=== PATIENT | female | born 1990 | race American Indian/Alaskan Native ===

== ENCOUNTER 2018-08-07 10:37 | Outpatient (CLI) | payer MEDICAID ==
--- NOTE | 2018-08-07 12:25 | XRay Report ---
CERVICAL SPINE, 5 views: History: Cervicalgia. Views of the cervical spine demonstrate normal bony alignment, vertebral height and interspace distances. Oblique views show patent foramina and normal apophyseal joint alignment. The prevertebral soft tissues are not thickened. IMPRESSION: Normal study.
== END 2018-08-07 10:38 | disposition home or self-care (01) ==
LOC: XRAY 10:37
PROVIDERS: ATTEND Nurse Practitioner
DX: M54.2 Cervicalgia (principal); Z88.0 Allergy status to penicillin
CPT/HCPCS: 72050

== ENCOUNTER 2020-03-21 13:12 | Emergency (ER) | payer SELFPAY ==
[2020-03-21 13:28] VITALS: BP 125/83
--- NOTE | 2020-03-21 13:47 | Emergency Department Report ---
ED ENT HPI - General Chief complaint: Headache Stated complaint: EAR AND NECK PAIN FOR 3 WEEKS Time Seen by Provider: 03/21/20 13:29 Source: patient Mode of arrival: Ambulatory Limitations: No Limitations - History of Present Illness Initial comments: 30 y/o female comes in for left ear pain and left neck pain times 3 weeks. Has been taking pain medication without much relief. Denies any PMH . Has an allergy to PCN. No fever no chest pain or throat pain. MD complaint: ear pain Onset/Timin -: week(s) Location: L ear Severity scale (0 -10): 8 Quality: stabbing, aching, sharp Consistency: constant Improves with: none Worsens with: movement Associated Symptoms: discharge from ear. denies: fever, cough, gum swelling, toothache, pain with swallowing, sore throat - Related Data Allergies Allergy/AdvReac Type Severity Reaction Status Date / Time Penicillins AdvReac Anaphylaxis Unverified 08/07/18 10:38 ED Dental HPI - General Chief complaint: Headache Stated complaint: EAR AND NECK PAIN FOR 3 WEEKS Time Seen by Provider: 03/21/20 13:29 Source: patient Mode of arrival: Ambulatory Limitations: No Limitations - Related Data Allergies Allergy/AdvReac Type Severity Reaction Status Date / Time Penicillins AdvReac Anaphylaxis Unverified 08/07/18 10:38 ED Review of Systems ROS: Stated complaint: EAR AND NECK PAIN FOR 3 WEEKS Other details as noted in HPI ED Past Medical Hx - Past Medical History Previous Medical History?: No - Surgical History Past Surgical History?: No - Social History Smoking Status: Current Every Day Smoker Substance Use Type: None ED Physical Exam - General Limitations: No Limitations General appearance: alert, in no apparent distress - Head Head exam: Present: atraumatic, normocephalic - Eye Eye exam: Present: normal appearance - ENT ENT exam: Present: mucous membranes moist - Expanded ENT Exam Expanded TM/Canal exam: Erythema: Left TM, Canal Discharge: Left TM - Neck Neck exam: Present: normal inspection - Neurological Exam Neurological exam: Present: alert, oriented X3, normal gait - Psychiatric Psychiatric exam: Present: normal affect, normal mood - Skin Skin exam: Present: warm, dry, intact, normal color. Absent: rash ED Course Vital Signs 03/21/20 13:25 Temperature 98.2 F Pulse Rate 102 H Respiratory 16 Rate Blood Pressure 125/83 O2 Sat by Pulse 100 Oximetry ED Medical Decision Making - Medical Decision Making 30 y/o female comes in for left ear pain and left neck pain times 3 weeks. Has been taking pain medication without much relief. Denies any PMH . Has an allergy to PCN. No fever no chest pain or throat pain. Order ear drops will place [facility] Critical care attestation.: If time is entered above; I have spent that time in minutes in the direct care of this critically ill patient, excluding procedure time. ED Disposition Clinical Impression: Otitis externa Is pt being admited?: No Does the pt Need Aspirin: No Condition: Stable Instructions: Otitis Externa (ED) Additional Instructions: use ear drops as prescribed follow up with an research contracts supervisor as needed. Continue with over the counter pain medications. Referrals: PRIMARY CARE, [Primary Care Provider] - 3-5 Days
[2020-03-21] MEDS ORDERED: NEOMY 3.5 MG/POLY B 10,000 UNITS/HC 10 MG/ML (OTIC) SUSP 10 ML AU ONE (14:00)
== END 2020-03-21 15:05 | disposition home or self-care (01) ==
LOC: ED 13:12
DX: H60.92 Unspecified otitis externa, left ear (principal); F17.200 Nicotine dependence, unspecified, uncomplicated; Z79.899 Other long term (current) drug therapy; Z88.0 Allergy status to penicillin
CPT/HCPCS: 99282

== ENCOUNTER 2020-10-12 12:18 | Emergency (ER) | payer SELFPAY ==
[2020-10-12 13:27] VITALS: BP 114/58
--- NOTE | 2020-10-12 13:27 | Event Note ---
ED Screening Note ED Screening Note: 30-year-old female with multiple complaining of a few day history of suprapubic pain which is now began to progress to left flank pain and and worsening pelvic pain after being struck into the her left side with a door. Advanced over the door she reports having some vague spotting. Reports no urinary symptoms reports no suspicion for an STD but is like coming on for her menses as she is a G3, P3 with a current possibility of being but has not yet been evaluated This initial assessment/diagnostic orders/clinical plan/treatment(s) is/are subject to change based on patients health status, clinical progression and re- assessment by fellow clinical providers in the ED. Further treatment and workup at subsequent clinical providers discretion. Patient/guardian urged not to elope from the ED as their condition may be serious if not clinically assessed and managed. Initial orders include: Urinalysis and urine hCG may involve further testing once these results have been determined
[2020-10-12 15:46] LABS: Bilirubin,Urine NEG (Negative); Blood,Urine NEG (Negative); Color,Urine Yellow (Yellow); Mucus,Urine FEW /HPF; Protein,Urine <15 mg/dL mg/dL (Negative); Urobilinogen,Urine < 2.0 mg/dL (<2.0)
[2020-10-12 16:00] LABS: HCG Qualitative,Urine Positive (Negative)
--- NOTE | 2020-10-12 16:15 | Emergency Department Report ---
<KYLE TABARES - Last Filed: 10/12/20 18:27> ED Female HPI - General Chief complaint: Abdominal Pain Stated complaint: ABD AND VAGINAL PAIN Time Seen by Provider: 10/12/20 15:26 Source: patient Mode of arrival: Ambulatory Limitations: No Limitations - History of Present Illness Initial comments: Patient is a 30-year-old female presents emergency room with complaints of pelvic pain that began a week ago. She states that yesterday she was accidentally hit to the left lower abdomen with a door being opened. She denies any fever, nausea, vomiting, diarrhea, hematuria, vaginal discharge, vaginal itching or burning, lesions or blisters. She states that she had one episode of spotting yesterday but that completely resolved. She states that she is unsure if she is . She states her last menstrual cycle was September 13. She has not taken a test. No past medical history. Allergy to penicillin. - Related Data Allergies Allergy/AdvReac Type Severity Reaction Status Date / Time Penicillins AdvReac Anaphylaxis Unverified 08/07/18 10:38 ED Review of Systems Comment: All other systems reviewed and negative ED Past Medical Hx - Past Medical History Previous Medical History?: No - Surgical History Past Surgical History?: No - Social History Smoking Status: Never Smoker Substance Use Type: None ED Physical Exam - General Limitations: No Limitations General appearance: alert, in no apparent distress - Head Head exam: Present: atraumatic, normocephalic - Eye Eye exam: Present: normal appearance - ENT ENT exam: Present: mucous membranes moist - Respiratory Respiratory exam: Present: normal lung sounds bilaterally. Absent: respiratory distress, wheezes, rales, rhonchi, stridor, chest wall tenderness, accessory muscle use, decreased breath sounds, prolonged expiratory - Cardiovascular Cardiovascular Exam: Present: regular rate, normal rhythm, normal heart sounds. Absent: systolic murmur, diastolic murmur, rubs, gallop - GI/Abdominal GI/Abdominal exam: Present: soft, normal bowel sounds, other (no ecchymosis, negative murphys sign, no mcburneys point ttp, negative mancuso turners and cullens sign, no crepitus, no deformity). Absent: distended, tenderness, guarding, rebound, rigid - Back Exam Back exam: Absent: CVA tenderness (R), CVA tenderness (L) - Neurological Exam Neurological exam: Present: alert, oriented X3 - Psychiatric Psychiatric exam: Present: normal affect, normal mood - Skin Skin exam: Present: warm, dry, intact ED Medical Decision Making - Lab Data Result diagrams: 10/12/20 16:02 10/12/20 16:02 Lab Results 10/12/20 10/12/20 10/12/20 Range/Units 15:28 16:02 16:02 WBC 11.8 H (4.5-11.0) K/mm3 RBC 4.55 (3.65-5.03) M/mm3 Hgb 13.0 (10.1-14.3) gm/dl Hct 39.9 (30.3-42.9) % MCV 88 (79-97) fl MCH 29 (28-32) pg MCHC 33 (30-34) % RDW 14.5 (13.2-15.2) % Plt Count 256 (140-440) K/mm3 Lymph % (Auto) 23.9 (13.4-35.0) % [place] % (Auto) 8.5 H (0.0-7.3) % Eos % (Auto) 0.5 (0.0-4.3) % Baso % (Auto) 0.3 (0.0-1.8) % Lymph # (Auto) 2.8 (1.2-5.4) K/mm3 [place] # (Auto) 1.0 H (0.0-0.8) K/mm3 Eos # (Auto) 0.1 (0.0-0.4) K/mm3 Baso # (Auto) 0.0 (0.0-0.1) K/mm3 Seg Neutrophils % 66.8 (40.0-70.0) % Seg Neutrophils # 7.9 H (1.8-7.7) K/mm3 Sodium 136 L (137-145) mmol/L Potassium 4.5 (3.6-5.0) mmol/L Chloride 103.1 (98-107) mmol/L Carbon Dioxide 23 (22-30) mmol/L Anion Gap 14 mmol/L BUN 8 (7-17) mg/dL Creatinine 0.6 (0.6-1.2) mg/dL Estimated GFR > 60 ml/min BUN/Creatinine Ratio 13 % Glucose 102 H (65-100) mg/dL Calcium 9.7 (8.4-10.2) mg/dL Total Bilirubin 0.20 (0.1-1.2) mg/dL AST 19 (5-40) units/L ALT 23 (7-56) units/L Alkaline Phosphatase 46 (35-129) units/L Total Protein 7.3 (6.3-8.2) g/dL Albumin 4.0 (3.9-5) g/dL Albumin/Globulin Ratio 1.2 % HCG, Quant (0-4) mIU/mL Urine Color Yellow (Yellow) Urine Turbidity Clear (Clear) Urine pH 9.0 H (5.0-7.0) Ur Specific [place] 1.018 (1.003-1.030) Urine Protein <15 mg/dl (Negative) mg/dL Urine Glucose (UA) Neg (Negative) mg/dL Urine Ketones Neg (Negative) mg/dL Urine Blood Neg (Negative) Urine Nitrite Neg (Negative) Urine Bilirubin Neg (Negative) Urine Urobilinogen < 2.0 (<2.0) mg/dL Ur Leukocyte Esterase Neg (Negative) Urine WBC (Auto) 1.0 (0.0-6.0) /HPF Urine RBC (Auto) 3.0 (0.0-6.0) /HPF U Epithel Cells (Auto) 11.0 (0-13.0) /HPF Urine Mucus Few /HPF Urine HCG, Qual Positive A (Negative) Blood Type 10/12/20 10/12/20 Range/Units 16:02 16:02 WBC (4.5-11.0) K/mm3 RBC (3.65-5.03) M/mm3 Hgb (10.1-14.3) gm/dl Hct (30.3-42.9) % MCV (79-97) fl MCH (28-32) pg MCHC (30-34) % RDW (13.2-15.2) % Plt Count (140-440) K/mm3 Lymph % (Auto) (13.4-35.0) % [place] % (Auto) (0.0-7.3) % Eos % (Auto) (0.0-4.3) % Baso % (Auto) (0.0-1.8) % Lymph # (Auto) (1.2-5.4) K/mm3 [place] # (Auto) (0.0-0.8) K/mm3 Eos # (Auto) (0.0-0.4) K/mm3 Baso # (Auto) (0.0-0.1) K/mm3 Seg Neutrophils % (40.0-70.0) % Seg Neutrophils # (1.8-7.7) K/mm3 Sodium (137-145) mmol/L Potassium (3.6-5.0) mmol/L Chloride (98-107) mmol/L Carbon Dioxide (22-30) mmol/L Anion Gap mmol/L BUN (7-17) mg/dL Creatinine (0.6-1.2) mg/dL Estimated GFR ml/min BUN/Creatinine Ratio % Glucose (65-100) mg/dL Calcium (8.4-10.2) mg/dL Total Bilirubin (0.1-1.2) mg/dL AST (5-40) units/L ALT (7-56) units/L Alkaline Phosphatase (35-129) units/L Total Protein (6.3-8.2) g/dL Albumin (3.9-5) g/dL Albumin/Globulin Ratio % HCG, Quant 785.3 H (0-4) mIU/mL Urine Color (Yellow) Urine Turbidity (Clear) Urine pH (5.0-7.0) Ur Specific [place] (1.003-1.030) Urine Protein (Negative) mg/dL Urine Glucose (UA) (Negative) mg/dL Urine Ketones (Negative) mg/dL Urine Blood (Negative) Urine Nitrite (Negative) Urine Bilirubin (Negative) Urine Urobilinogen (<2.0) mg/dL Ur Leukocyte Esterase (Negative) Urine WBC (Auto) (0.0-6.0) /HPF Urine RBC (Auto) (0.0-6.0) /HPF U Epithel Cells (Auto) (0-13.0) /HPF Urine Mucus /HPF Urine HCG, Qual (Negative) Blood Type A POSITIVE - Medical Decision Making Patient is a 30-year-old female presents emergency room with complaints of pelvic pain that began a week ago. She states that yesterday she was accidentally hit to the left lower abdomen with a door being opened. She denies any fever, nausea, vomiting, diarrhea, hematuria, vaginal discharge, vaginal itching or burning, lesions or blisters. She states that she had one episode of spotting yesterday but that completely resolved. She states that she is unsure if she is . She states her last menstrual cycle was September 13. She has not taken a test. No past medical history. Allergy to penicillin. VSS. No abdominal tenderness on exam, no guarding, no rebound, no rigidity, no peritoneal signs, normal bowel sounds, no ecchymosis, negative murphys sign, no mcburneys point ttp, negative mnacuso turners and cullens sign, no crepitus, no deformity. UA is within normal limits. Urine is positive. hCG quant is 785. Labs are stable. Patient is Rh+. Given that she is having pelvic pain and is newly found out to be , OB ultrasound ordered. Patient signed out to Mary Manriquez PA-C at 6 PM pending OB ultrasound ED Disposition Clinical Impression: Positive test Disposition: TO HOME OR SELFCARE Condition: Stable Instructions: Abdominal Pain (ED) Additional Instructions: Recommend to repeat your hCG in 72 hours. Ultrasound shows no intrauterine gestation but with your hCG numbers below 2000 is most likely will not show up this early. I recommend to repeat your labs in possible repeat ultrasound. You can only take Tylenol at this time for pain. You can also follow-up with an OB /MOBILE SECURITY SPECIALIST I have listed their information below. Referrals: PRIMARY CARE, [Primary Care Provider] - 3-5 Days [facility] [Provider Group] - 3-5 Days [facility] [Provider Group] - 3-5 Days Forms: Work/School Release Form(ED) <HONEY MANRIQUEZ - Last Filed: 10/12/20 22:40> ED Review of Systems ROS: Stated complaint: ABD AND VAGINAL PAIN Other details as noted in HPI ED Course Vital Signs 10/12/20 13:23 Temperature 98.2 F Pulse Rate 102 H Respiratory 18 Rate Blood Pressure 114/58 O2 Sat by Pulse 98 Oximetry ED Medical Decision Making - Lab Data Result diagrams: 10/12/20 16:02 10/12/20 16:02 - Radiology Data Radiology results: report reviewed [facility] [address] [place] [address] Ultrasound Report Signed Patient: SAMMIE HERNANDEZ MR#: [id number] : 1990 Acct:[id number] Age/Sex: 30 / F ADM Date: 10/12/20 Loc: ED Attending Dr: Ordering Physician: SHIRA MUSE Date of Service: 10/12/20 Procedure(s): US OB <= 14 weeks fetus Accession Number(s): [id number] cc: SHIRA MUSE Pelvic ultrasound with Doppler INDICATION: Pelvic pain. test positive FINDINGS: The uterus measures 9 x 5 x 6 cm. Endometrial thickness is 9 mm. Left ovary is not visualized from overlying bowel gas. The right ovary appears normal. No intrauterine was identified IMPRESSION: No intrauterine identified. The right ovary is normal but the left adnexa was poorly identified from overlying bowel gas and cannot be assessed. Signer Name: Curtis Villa MD Signed: 10/12/2020 7:22 PM Workstation Name: [id number] Transcribed By: Dictated By: Curtis Villa MD Electronically Authenticated By: Curtis Villa MD Signed Date/Time: 10/12/201921 DD/ 20 TD/TT: Critical care attestation.: If time is entered above; I have spent that time in minutes in the direct care of this critically ill patient, excluding procedure time. ED Disposition Is pt being admited?: No Does the pt Need Aspirin: No
[2020-10-12 16:35] LABS: Alanine Aminotransferase 23 units/L (7-56); BUN/Creatinine Ratio 13; Blood Urea Nitrogen 8 mg/dL (7-17); Calcium 9.7 mg/dL (8.4-10.2); Hemolysis Index 13
[2020-10-12 16:42] LABS: Basophils % (Auto) 0.3 % (0.0-1.8); Eosinophils # (Auto) 0.1 K/mm3 (0.0-0.4); Eosinophils % (Auto) 0.5 % (0.0-4.3); Hematocrit 39.9 % (30.3-42.9); Lymphocytes # (Auto) 2.8 K/mm3 (1.2-5.4); Lymphocytes % (Auto) 23.9 % (13.4-35.0); Mean Corpuscular HGB Conc 33 % (30-34); Mean Corpuscular Volume 88 fl (79-97); Monocytes % (Auto) 8.5 % (0.0-7.3); Platelet Count 256 K/mm3 (140-440); Red Blood Count 4.55 M/mm3 (3.65-5.03); Red Cell Distribution Width 14.5 % (13.2-15.2)
--- NOTE | 2020-10-12 19:26 | Ultrasound Report ---
Pelvic ultrasound with Doppler INDICATION: Pelvic pain. test positive FINDINGS: The uterus measures 9 x 5 x 6 cm. Endometrial thickness is 9 mm. Left ovary is not visualiz ed from overlying bowel gas. The right ovary appears normal. No intrauterine was identified IMPRESSION: No intrauterine identified. The right ovary is normal but the left adnexa was p oorly identified from overlying bowel gas and cannot be assessed. Signer Name: Curtis Villa MD Signed: 10/12/2020 7:22 PM Workstation Name: [id number]
== END 2020-10-12 19:50 | disposition home or self-care (01) ==
LOC: ED 12:18
DX: Z32.01 Encounter for pregnancy test, result positive (principal); Z88.0 Allergy status to penicillin
CPT/HCPCS: 36415; 76801; 80053; 81001; 81025; 84702; 85025; 86900; 86901

== ENCOUNTER 2020-10-17 19:07 | Emergency (ER) | payer SELFPAY ==
--- NOTE | 2020-10-17 19:34 | Emergency Department Report ---
ED Recheck HPI - General Chief Complaint: Medical Clearance Stated Complaint: LOWER ABDOMINAL PAIN Time Seen by Provider: 10/17/20 19:34 Source: patient Mode of arrival: Ambulatory Limitations: No Limitations - History of Present Illness Initial Comments: The patient was evaluated in the emergency department for symptoms described in the history of present illness. He/she was evaluated in the context of the global COVID-19 pandemic, which necessitated consideration that the patient might be at risk for infection with the virus that causes COVID-19. Institutional protocols and algorithms that pertain to the evaluation of patients at risk for COVID-19 are in a state of rapid change based on information released by regulatory bodies including the CDC and federal and state organizations. These policies and algorithms were followed during the patient's care in the emergency department. Please note that these policies, procedures and recommendations changed on a rapid basis. 30-year-old -[place] female presents to the emergency room for a repeat hCG and follow-up on her abdominal pain. Patient came in on 10/12/2020 and had a positive test with hCG of less than 800. Patient had an ultrasound that did not show intrauterine gestational sac as hCG level was too low. Therefore patient came back to have a repeat. Patient still reports her pains a 6 out of 10. Denies any vaginal bleeding or vaginal discharge MD Complaint: abnormal lab Onset/Timin -: days(s) - Related Data Previous Rx's Medication Instructions Recorded Last Taken Type Vit-Fe Fumar-FA [ 1 tab PO QDAY #90 tablet 10/17/20 Unknown Rx Vitamin] Allergies Allergy/AdvReac Type Severity Reaction Status Date / Time Penicillins AdvReac Anaphylaxis Unverified 08/07/18 10:38 ED Review of Systems ROS: Stated complaint: LOWER ABDOMINAL PAIN Other details as noted in HPI ED Past Medical Hx - Social History Smoking Status: Never Smoker Substance Use Type: None - Medications Home Medications: Home Medications Medication Instructions Recorded Confirmed Last Taken Type Vit-Fe Fumar-FA [ 1 tab PO QDAY #90 tablet 10/17/20 Unknown Rx Vitamin] ED Physical Exam - General Limitations: No Limitations General appearance: alert, in no apparent distress - Head Head exam: Present: atraumatic, normocephalic - Eye Eye exam: Present: normal appearance - ENT ENT exam: Present: mucous membranes moist - Neck Neck exam: Present: normal inspection - Respiratory Respiratory exam: Present: normal lung sounds bilaterally. Absent: respiratory distress - GI/Abdominal GI/Abdominal exam: Present: soft, normal bowel sounds - Neurological Exam Neurological exam: Present: alert, oriented X3, normal gait - Psychiatric Psychiatric exam: Present: normal affect, normal mood - Skin Skin exam: Present: warm, dry, intact, normal color. Absent: rash ED Course Vital Signs 10/17/20 19:33 Temperature 97.8 F Pulse Rate 113 H Respiratory 17 Rate Blood Pressure 107/57 O2 Sat by Pulse 100 Oximetry ED Recheck MDM - Medical Decision Making 30-year-old -[place] female presents to the emergency room for a repeat hCG and follow-up on her abdominal pain. Patient came in on 10/12/2020 and had a positive test with hCG of less than 800. Patient had an ultrasound that did not show intrauterine gestational sac as hCG level was too low. Therefore patient came back to have a repeat. Patient still reports her pains a 6 out of 10. Denies any vaginal bleeding or vaginal discharge Critical care attestation.: If time is entered above; I have spent that time in minutes in the direct care of this critically ill patient, excluding procedure time. ED Disposition Clinical Impression: Qualifiers: Weeks of gestation: less than 8 weeks Qualified Code(s): Z3A.01 - Less than 8 weeks gestation of Disposition: DC-01 TO HOME OR SELFCARE Is pt being admited?: No Does the pt Need Aspirin: No Condition: Stable Additional Instructions: hCG is 5346. Ultrasound shows 5 weeks and 5 days gestational sac. Please take your vitamins and follow-up with an PLUG MAKING OPERATOR. Prescriptions: Vit-Fe Fumar-FA [ Vitamin] 1 tab PO QDAY #90 tablet Referrals: PRIMARY CARE, [Primary Care Provider] - 3-5 Days [facility] [Provider Group] - 3-5 Days [facility] [Provider Group] - 3-5 Days [facility] [Provider Group] - 3-5 Days Forms: Work/School Release Form(ED) ED Medical Decision Making - Radiology Data Radiology results: report reviewed Referring Physician:HONEY MANRIQUEZPatient Name:SAMMIE HERNANDEZPatient ID:[id number] of :[id number]:FemaleAccession:[id number] Date:[id number] Status:Finalized Findings [facility] [address] [id number] Ultrasound Report Signed Patient: SAMMIE HERNANDEZ MR#: [id number] : 1990 Acct:[id number] Age/Sex: 30 / F ADM Date: 10/17/20 Loc: ED Attending Dr: Ordering Physician: SHIRA CANO Date of Service: 10/17/20 Procedure(s): US OB <= 14 weeks fetus Accession Number(s): [id number] cc: SHIRA CANO ULTRASOUND OBSTETRIC INDICATION / CLINICAL INFORMATION: HCG 5000< pelvic pain. TECHNIQUE: Transabdominal. COMPARISON: 10/12/2020 FINDINGS: GESTATIONAL SAC: Gestational sac is seen measuring 8.9 mm. This corresponds to 5 weeks, 5 days. No pole is seen. YOLK SAC: Not seen. ADNEXA: No significant abnormality. FREE FLUID: None. ADDITIONAL FINDINGS: None. IMPRESSION: Gestational sac in the uterus with sac size corresponding to 5 weeks, 5 days. No pole seen at this time. Signer Name: Stoney Maher MD Signed: 10/17/2020 11:19 PM Workstation Name: [id number] Transcribed By: NAYAN Dictated By: Stoney Maher MD Electronically Authenticated By: Stoney Maher MD Signed Date/Time: 10/17/202318 DD/ 17 TD/TT: - Medical Decision Making 30-year-old -[place] female presents to the emergency room for a repeat hCG and follow-up on her abdominal pain. Patient came in on 10/12/2020 and had a positive test with hCG of less than 800. Patient had an ultrasound that did not show intrauterine gestational sac as hCG level was too low. Therefore patient came back to have a repeat. Patient still reports her pains a 6 out of 10. Denies any vaginal bleeding or vaginal discharge. hCG came back 5346. Ultrasound shows a gestational sac approximately 5 weeks and 5 days no pole at this moment. Patient to follow-up with her PLUG MAKING OPERATOR.
[2020-10-17 19:35] VITALS: BP 107/57
--- NOTE | 2020-10-17 23:24 | Ultrasound Report ---
ULTRASOUND OBSTETRIC INDICATION / CLINICAL INFORMATION: HCG 5000< pelvic pain. TECHNIQUE: Transabdominal. COMPARISON: 10/12/2020 FINDINGS: GESTATIONAL SAC: Gestational sac is seen measuring 8.9 mm. This corresponds to 5 weeks, 5 days. No fe carmen pole is seen. YOLK SAC: Not seen. ADNEXA: No significant abnormality. FREE FLUID: None. ADDITIONAL FINDINGS: None. IMPRESSION: Gestational sac in the uterus with sac size corresponding to 5 weeks, 5 days. No pole seen at t his time. Signer Name: Stoney Maher MD Signed: 10/17/2020 11:19 PM Workstation Name: [id number]
== END 2020-10-17 21:40 | disposition home or self-care (01) ==
LOC: ED 19:07
DX: Z34.90 Encounter for supervision of normal pregnancy, unspecified, unspecified trimester (principal); Z79.899 Other long term (current) drug therapy; Z88.0 Allergy status to penicillin; Z3A.01 Less than 8 weeks gestation of pregnancy
CPT/HCPCS: 36415; 76801; 84702

== ENCOUNTER 2021-01-10 16:25 | Emergency (ER) | payer MEDICAID ==
[2021-01-10] MEDS ORDERED: ACETAMINOPHEN 500 MG TAB PO ONE (16:41)
--- NOTE | 2021-01-10 16:46 | Emergency Department Report ---
ED General Adult HPI - General Chief complaint: Pain General Stated complaint: BACK/CHEST/COUGH/ABD PAIN Time Seen by Provider: 01/10/21 16:44 Source: patient Mode of arrival: Wheelchair Limitations: No Limitations - History of Present Illness Initial comments: 30-year-old female who is currently 16 weeks presents to the ER today complaining of pain which starts in her right back/flank and radiates around into her right chest. Patient states that the pain started yesterday while she was sitting in a car. She states that the pain has been constant but waxes and wanes. She described as a sharp pain. She states that seem to be worse when she moves, when she coughs, when she eats or drink and sometimes when she takes a deep breath. She denies any injury to her chest. She states that when the pain in her back into her chest intensifies it causes her abdominal area to tighten up. She reports associated dry cough cough, shortness of breath headache, and diarrhea. She states that she has had diarrhea for about a week, about 2 episodes per day of watery stools without melena or hematochezia. She denies any nausea or vomiting. She denies any abnormal vaginal bleeding or discharge. She denies any leg swelling or calf pain. She denies any fever or chills. MD Complaint: Right-sided back pain/right chest pain -: Gradual, days(s) (yesterday ) - Related Data Previous Rx's Medication Instructions Recorded Last Taken Type Vit-Fe Fumar-FA [ 1 tab PO QDAY #90 tablet 10/17/20 Unknown Rx Vitamin] Nitrofurantoin [place]/M-Cryst 100 mg PO Q12HR #14 capsule 01/10/21 Unknown Rx [Macrobid CAP] Allergies Allergy/AdvReac Type Severity Reaction Status Date / Time Penicillins AdvReac Anaphylaxis Unverified 08/07/18 10:38 ED Review of Systems ROS: Stated complaint: BACK/CHEST/COUGH/ABD PAIN Other details as noted in HPI Comment: All other systems reviewed and negative Constitutional: denies: chills, fever Eyes: denies: eye pain, eye discharge, vision change ENT: denies: ear pain, throat pain Respiratory: cough. denies: orthopnea, shortness of breath, SOB with exertion, SOB at rest, stridor, wheezing Cardiovascular: chest pain (Right-sided chest pain). denies: palpitations, dyspnea on exertion, orthopnea, edema, syncope, paroxysmal nocturnal dyspnea Gastrointestinal: diarrhea. denies: abdominal pain, nausea, vomiting, constipation, hematemesis Genitourinary: denies: urgency, dysuria, frequency, hematuria, discharge, a bnormal menses, dyspareunia Musculoskeletal: back pain Neurological: headache Psychiatric: denies: anxiety, depression Hematological/Lymphatic: denies: easy bleeding, easy bruising ED Past Medical Hx - Past Medical History Previous Medical History?: No - Surgical History Past Surgical History?: No - Social History Smoking Status: Never Smoker Substance Use Type: None - Medications Home Medications: Home Medications Medication Instructions Recorded Confirmed Last Taken Type Vit-Fe Fumar-FA [ 1 tab PO QDAY #90 tablet 10/17/20 Unknown Rx Vitamin] Nitrofurantoin [place]/M-Cryst 100 mg PO Q12HR #14 capsule 01/10/21 Unknown Rx [Macrobid CAP] ED Physical Exam - General Limitations: No Limitations General appearance: alert, in no apparent distress - Head Head exam: Present: atraumatic, normocephalic, normal inspection - Eye Eye exam: Present: normal appearance, PERRL, EOMI Pupils: Present: normal accommodation - Respiratory Respiratory exam: Present: normal lung sounds bilaterally, chest wall tenderness (right lateral/posterior chest wall). Absent: respiratory distress - Cardiovascular Cardiovascular Exam: Present: regular rate, normal rhythm, normal heart sounds - GI/Abdominal GI/Abdominal exam: Present: soft, tenderness (Mild RUQ), other (Gravid abdomen consistent with gestational age). Absent: guarding, rebound - Extremities Exam Extremities exam: Present: normal inspection. Absent: full ROM, normal capillary refill, pedal edema, calf tenderness - Back Exam Back exam: Present: tenderness (right upper lumbar/lower thoracic. No midline ttp. ) - Neurological Exam Neurological exam: Present: alert, oriented X3 - Psychiatric Psychiatric exam: Present: normal affect, normal mood - Skin Skin exam: Present: intact ED Course Vital Signs 01/10/21 01/10/21 16:29 18:26 Temperature 98.3 F 98.3 F Pulse Rate 112 H 98 H Respiratory 16 18 Rate Blood Pressure 122/72 Blood Pressure 115/61 [Left] O2 Sat by Pulse 100 98 Oximetry ED Medical Decision Making - Lab Data Result diagrams: 01/10/21 17:21 01/10/21 17:21 - EKG Data EKG shows normal: sinus rhythm Rate: normal - EKG Data Interpretation: no acute changes, normal EKG - Radiology Data Radiology results: report reviewed Findings [address] [address] Ultrasound Report Signed Patient: SAMMIE HERNANDEZ MR#: [id number] 917 : 1990 Acct:[id number] Age/Sex: 30 / F ADM Date: 01/10/21 Loc: ED Attending Dr: Ordering Physician: SHIRA VICENTE Date of Service: 01/10/21 Procedure(s): US OB >= 14 weeks Fetus Accession Number(s): [id number] cc: SHIRA VICENTE OBSTETRIC ULTRASOUND INDICATION: abdominal pain COMPARISON: 10/17/2020 TECHNIQUE: Transabdominal imaging was performed. FINDINGS: Single viable intrauterine is identified. lie: Transverse. Heart rate: 140 bpm. measurements are as follows: Biparietal diameter 3.7 cm, 17 weeks 2 days Head circumference 13.7 cm, 17 weeks 1 day Abdominal circumference 11.2 cm, 17 weeks 0 days Femur length 2.4 cm, 17 weeks 1 day Amniotic fluid index is subjectively within normal limits. No placental abnor malities are seen. Cervix is closed measuring 4 cm. CONCLUSION: No abnormalities are seen. Sonographic gestational age is 17 weeks 1 day which corresponds with clinical gestational age. Signer Name: Shoaib Cortez MD Signed: 01/10/2021 5:27 PM Workstation Name: [id number] Transcribed By: Dictated By: Shoaib Cortez MD Electronically Authenticated By: Shoaib Cortez MD Signed Date/Time: 01/10/211726 DD/ 172 TD/TT: Findings [address] [address] XRay Report Signed Patient: SAMMIE HERNANDEZ MR#: [id number] 917 : 1990 Acct:[id number] Age/Sex: 30 / F ADM Date: 01/10/21 Loc: ED Attending Dr: Ordering Physician: SHIRA VICENTE Date of Service: 01/10/21 Procedure(s): XR chest 1V ap Accession Number(s): [id number] cc: SIHRA VICENTE Fluoro Time In Adriana ganga: CHEST 1 VIEW 01/10/2021 5:05 PM INDICATION / CLINICAL INFORMATION: dyspnea. COMPARISON: None available. FINDINGS: SUPPORT DEVICES: None. HEART / MEDIASTINUM: No significant abnormality. LUNGS / PLEURA: No significant pulmonary or pleural abnormality. No pneumothorax. ADDITIONAL FINDINGS: No signi ficant additional findings. IMPRESSION: No acute cardiopulmonary abnormality. Signer Name: Melody Mathews MD Signed: 01/10/2021 6:13 PM Workstation Name: [id number] Transcribed By: Dictated By: MELODY MATHEWS Electronically Authenticated By: MELODY MATHEWS Signed Date/Time: 01/10/211812 DD/ 12 TD/TT: Findings [facility] [address] [place] [address] Ultrasound Report Signed Patient: SAMMIE HERNANDEZ MR#: [id number] 917 : 1990 Acct:[id number] Age/Sex: 30 / F ADM Date: 01/10/21 Loc: ED Attending Dr: Ordering Physician: SHIRA VICENTE Date of Service: 01/10/21 Procedure(s): US abdomen limited Accession Number(s): [id number] cc: SHIRA VICENTE ULTRASOUND ABDOMEN, LIMITED (RIGHT UPPER QUADRANT) INDICATION: RUQ Pain. COMPARISON: None available. FINDINGS: Pancreas: Visualized portion shows no significant abnormality. Liver: Normal. Gallbladder: Normal. Bile ducts: Normal. Common Bile Duct measures 2 mm. Free fluid: None. Additional Findings: The right kidney is visualized, there is no hydronephrosis. IMPRESSION: 1. No sonographic abnormality of the right upper quadrant. Signer Name: Shoaib Cortez MD Signed: 01/10/2021 5:24 PM Workstation Name: [id number] Transcribed By: Dictated By: Shoaib Cortez MD Electronically Authenticated By: Shoaib Cortez MD Signed Date/Time: 01/10/211723 DD/ 22 TD/TT: - Medical Decision Making 30-year-old female who is currently 16 weeks presents to the ER today complaining of pain which starts in her right back/flank and radiates around into her right chest. Patient states that the pain started yesterday while she was sitting in a car. She states that the pain has been constant but waxes and wanes. She described as a sharp pain. She states that seem to be worse when she moves, when she coughs, when she eats or drink and sometimes when she takes a deep breath. She denies any injury to her chest. She states that when the pain in her back into her chest intensifies it causes her abdominal area to tighten up. She reports associated dry cough cough, shortness of breath headache, and diarrhea. She states that she has had diarrhea for about a week, about 2 episodes per day of watery stools without melena or hematochezia. She denies any nausea or vomiting. She denies any abnormal vaginal bleeding or discharge. She denies any leg swelling or calf pain. She denies any fever or chills. 0759: Labs reviewed, CBC elevated white count of 17, CMP including lipase unremarkable, right upper quadrant abdominal ultrasound negative for gallstones or acute cholecystitis or anything acute, OB ultrasound shows a live IUP at 17 weeks without any acute abnormality. Urinalysis is concerning for UTI. Patient is currently sitting comfortably talking on her phone. He has been observed ambulating in the ER without any pain or respiratory distress. Patient does have reproducible pain to the lateral posterior chest wall/right thoracic back area which is majority of where pain is. She does have some mild right upper quadrant and right lower quadrant abdominal tenderness but without guarding, rebound or rigidity. Dr. Alba had already left for the day so therefore discussed case with Dr. Mtz. Appendicitis was considered as part of our differential given elevated white count. Together with Dr. Mtz patient was reevaluated. Discussed lab results with patient, informed her that her urine is concerning for UTI, and we will tx with oral antibiotic. Also informed her that her pain could also be musculoskeletal given its worse with movement but discussed with her the possibility of appendicitis, though our suspicion for it is low at this time. We discuss risk and benefits of doing a CT of the abdomen and pelvis with the patient but she opted to watch and wait. Discussed appendicitis precautions with patient in detail. Patient expressed understanding that if her pain becomes worse, localized more so to the right abdomen, she starts having fever, vomiting, no appetite she needs to return immediately to the ER. Critical care attestation.: If time is entered above; I have spent that time in minutes in the direct care of this critically ill patient, excluding procedure time. ED Disposition Clinical Impression: Right-sided chest wall pain, Right-sided back pain, Right sided abdominal pain, UTI (urinary tract infection) Disposition: TO HOME OR SELFCARE Is pt being admited?: No Does the pt Need Aspirin: No Condition: Stable Instructions: Acute Back Pain, Adult, Urinary Tract Infection, Adult, [id number], Flank Pain, Adult, [id number], Abdominal Pain During , Chest Pain (ED) Additional Instructions: Take the antibiotics as prescribed. You can take Tylenol as needed for pain. It is important that you follow-up with your [employer] in the next couple days. If your symptoms worsens, localizes more to the right abdomen with associated fever, chills, nausea or vomiting and no appetite you need to return immediately to the ER. Prescriptions: Nitrofurantoin [place]/M-Cryst [Macrobid CAP] 100 mg PO Q12HR #14 capsule Referrals: PRIMARY CARE, [Primary Care Provider] - 3-5 Days Time of Disposition: 20:14
--- NOTE | 2021-01-10 17:29 | Ultrasound Report ---
ULTRASOUND ABDOMEN, LIMITED (RIGHT UPPER QUADRANT) INDICATION: RUQ Pain. COMPARISON: None available. FINDINGS: Pancreas: Visualized portion shows no significant abnormality. Liver: Normal. Gallbladder: Normal. Bile ducts: Normal. Common Bile Duct measures 2 mm. Free fluid: None. Additional Findings: The right kidney is visualized, there is no hydronephrosis. IMPRESSION: 1. No sonographic abnormality of the right upper quadrant. Signer Name: Shoaib Cortez MD Signed: 01/10/2021 5:24 PM Workstation Name: [id number]
--- NOTE | 2021-01-10 17:31 | Ultrasound Report ---
OBSTETRIC ULTRASOUND INDICATION: abdominal pain COMPARISON: 10/17/2020 TECHNIQUE: Transabdominal imaging was performed. FINDINGS: Single viable intrauterine is identified. lie: Transverse. Heart rate: 140 bpm. measurements are as follows: Biparietal diameter 3.7 cm, 17 weeks 2 days Head circumference 13.7 cm, 17 weeks 1 day Abdominal circumference 11.2 cm, 17 weeks 0 days Femur length 2.4 cm, 17 weeks 1 day Amniotic fluid index is subjectively within normal limits. No placental abnormalities are seen. Cerv ix is closed measuring 4 cm. CONCLUSION: No abnormalities are seen. Sonographic gestational age is 17 weeks 1 day which corresponds with clini yadiel gestational age. Signer Name: Shoaib Cortez MD Signed: 01/10/2021 5:27 PM Workstation Name: [id number]
[2021-01-10 17:48] LABS: Bilirubin,Urine NEG (Negative); Blood,Urine NEG (Negative); Color,Urine Yellow (Yellow); Mucus,Urine 1+ /HPF; Protein,Urine <15 mg/dL mg/dL (Negative)
[2021-01-10 17:54] LABS: Basophils % (Auto) 0.1 % (0.0-1.8); Eosinophils # (Auto) 0.1 K/mm3 (0.0-0.4); Eosinophils % (Auto) 0.5 % (0.0-4.3); Hematocrit 33.6 % (30.3-42.9); Hemoglobin 11.2 gm/dl (10.1-14.3); Lymphocytes # (Auto) 2.4 K/mm3 (1.2-5.4); Lymphocytes % (Auto) 14.4 % (13.4-35.0); Mean Corpuscular HGB Conc 33 % (30-34); Mean Corpuscular Volume 86 fl (79-97); Monocytes # (Auto) 1.4 K/mm3 (0.0-0.8); Monocytes % (Auto) 8.2 % (0.0-7.3); Platelet Count 199 K/mm3 (140-440); Red Blood Count 3.91 M/mm3 (3.65-5.03); Red Cell Distribution Width 13.5 % (13.2-15.2)
[2021-01-10 17:57] LABS: Alanine Aminotransferase 13 units/L (7-56); Albumin 3.8 g/dL (3.9-5); Blood Urea Nitrogen 6 mg/dL (7-17); Calcium 8.5 mg/dL (8.4-10.2); Hemolysis Index 2
[2021-01-10 18:01] LABS: BUN/Creatinine Ratio 20
--- NOTE | 2021-01-10 18:17 | XRay Report ---
CHEST 1 VIEW 01/10/2021 5:05 PM INDICATION / CLINICAL INFORMATION: dyspnea. COMPARISON: None available. FINDINGS: SUPPORT DEVICES: None. HEART / MEDIASTINUM: No significant abnormality. LUNGS / PLEURA: No significant pulmonary or pleural abnormality. No pneumothorax. ADDITIONAL FINDINGS: No significant additional findings. IMPRESSION: No acute cardiopulmonary abnormality. Signer Name: Pete Mathews MD Signed: 01/10/2021 6:13 PM Workstation Name: [id number]
[2021-01-10 18:28] VITALS: BP 115/61
== END 2021-01-10 20:20 | disposition home or self-care (01) ==
LOC: ED 16:25
DX: O26.892 Other specified pregnancy related conditions, second trimester (principal); R07.89 Other chest pain; O23.42 Unspecified infection of urinary tract in pregnancy, second trimester; Z79.899 Other long term (current) drug therapy; Z3A.17 17 weeks gestation of pregnancy; Z88.0 Allergy status to penicillin
CPT/HCPCS: 36415; 71045; 76705; 76805; 80053; 81001; 83690; 84484; 85025; 87076; 87086; 87186; 93005

== ENCOUNTER 2021-03-27 10:30 | Outpatient (CLI) | payer MEDICAID ==
[2021-03-27 10:57] VITALS: BP 111/69
[2021-03-27 11:33] LABS: Bilirubin,Urine NEG (Negative); Blood,Urine NEG (Negative); Color,Urine Yellow (Yellow); Mucus,Urine 2+ /HPF; Protein,Urine <15 mg/dL mg/dL (Negative)
[2021-03-27] MEDS ORDERED: D5W/LACTATED RINGERS 1,000 ML IV SCH (12:00)
== END 2021-03-27 12:40 | disposition home or self-care (01) ==
LOC: TRG 10:30 → APU 10:31 → TRG 12:40
PROVIDERS: ATTEND Obstetrics & Gynecology
DX: O99.283 Endocrine, nutritional and metabolic diseases complicating pregnancy, third trimester (principal); E86.0 Dehydration; O36.8130 Decreased fetal movements, third trimester, not applicable or unspecified; O26.893 Other specified pregnancy related conditions, third trimester; R10.2 Pelvic and perineal pain; O47.03 False labor before 37 completed weeks of gestation, third trimester; O99.333 Smoking (tobacco) complicating pregnancy, third trimester; F17.200 Nicotine dependence, unspecified, uncomplicated; O99.323 Drug use complicating pregnancy, third trimester; F12.90 Cannabis use, unspecified, uncomplicated; Z3A.28 28 weeks gestation of pregnancy
CPT/HCPCS: 59025; 81001; 96360; 96361; J7121

== ENCOUNTER 2021-05-14 15:36 | Outpatient (CLI) | payer MEDICAID ==
[2021-05-14] MEDS ORDERED: LACTATED RINGERS 500 ML IV ONE (17:03)
[2021-05-14 18:11] LABS: Bacteria,Urine 1+ /HPF (Negative); Bilirubin,Urine NEG (Negative); Blood,Urine NEG (Negative); Color,Urine Yellow (Yellow); Mucus,Urine 2+ /HPF; Protein,Urine <15 mg/dL mg/dL (Negative); Urobilinogen,Urine < 2.0 mg/dL (<2.0)
[2021-05-14 18:23] VITALS: BP 121/82
== END 2021-05-14 18:51 | disposition home or self-care (01) ==
LOC: APU 15:36 → TRG 15:36
PROVIDERS: ATTEND Obstetrics & Gynecology
DX: O26.893 Other specified pregnancy related conditions, third trimester (principal); R10.9 Unspecified abdominal pain; Z3A.34 34 weeks gestation of pregnancy
CPT/HCPCS: 59025; 81001; Q0177

== ENCOUNTER 2021-06-18 02:26 | Outpatient (CLI) | payer MEDICAID ==
[2021-06-18 02:42] VITALS: BP 120/60
[2021-06-18] MEDS ORDERED: CALCIUM CARBONATE 500 MG TAB CHEW PO ONE (03:11)
== END 2021-06-18 04:38 | disposition home or self-care (01) ==
LOC: TRG 02:26 → APU 02:34 → TRG 04:38
PROVIDERS: ATTEND Obstetrics & Gynecology
DX: O47.1 False labor at or after 37 completed weeks of gestation (principal); Z3A.39 39 weeks gestation of pregnancy
CPT/HCPCS: 59025

== ENCOUNTER 2021-06-18 18:33 | Inpatient (IN) | payer MEDICAID ==
[2021-06-18] MEDS ORDERED: BUTORPHANOL 2 MG/1 ML INJ IV PRN (19:08)
[2021-06-18] MEDS ORDERED: miSOPROStol 200 MCG TAB PR PRN (19:08)
[2021-06-18] MEDS ORDERED: ePHEDrine SULFATE 50 MG/1 ML INJ IV PRN ×2 (19:08→20:41)
[2021-06-18] MEDS ORDERED: LIDOCAINE (2%) 20 MG/1 ML VIAL 20 ML MDV INFILTRATI ONE (19:08)
[2021-06-18] MEDS ORDERED: TERBUTALINE 1 MG/1 ML INJ SUB-Q PRN (19:08)
[2021-06-18] MEDS ORDERED: OXYTOCIN 10 UNIT/1 ML INJ IM PRN (19:08)
[2021-06-18] MEDS ORDERED: ACETAMINOPHEN 325 MG TAB PO PRN (19:08)
[2021-06-18] MEDS ORDERED: LOPERAMIDE 2 MG CAP PO PRN (19:08)
[2021-06-18] MEDS ORDERED: METHYLERGONOVINE MALEATE 0.2 MG/ML VIAL IM PRN (19:08)
[2021-06-18] MEDS ORDERED: ONDANSETRON 4 MG/2 ML INJ IV PRN ×2 (19:08→20:41)
[2021-06-18] MEDS ORDERED: CARBOPROST TROMETHAMINE 250 MCG/1 ML INJ IM PRN (19:08)
[2021-06-18] MEDS ORDERED: MINERAL OIL 30 ML ORAL LIQD PO PRN (19:08)
[2021-06-18] MEDS ORDERED: NALOXONE 0.4 MG/1 ML INJ IV PRN (19:08)
--- NOTE | 2021-06-18 19:22 | History and Physical Report ---
History of Present Illness Date of examination: 06/18/21 Date of admission: 06/18/2021 Chief complaint: contractions starting last night History of present illness: EDC Confirmation: 06/19/2021 Past History : 4 Term Births: 3 Premature Births: 0 Living Children: 3 Para: 3 Mult. Births: 0 Prev : 0 Aborta: 0 Elect. Ab: 0 Spont. Ab: 0 Ectopics: 0 # 1 Delivery date: 11/19/2009 Weeks Gestation: 39 labor: no Delivery type: Hours of labor: >24 Anesthesia type: epidural Delivery location: [place] Sex: Male weight: 6-14 Name: Amos Comments: Elective induction # 2 Delivery date: 07/29/2013 Weeks Gestation: 39 labor: no Delivery type: Hours of labor: 8 Anesthesia type: epidural Delivery location: [place] Sex: Male weight: 8-14 Name: Ander Comments: Elevated BP # 3 Delivery date: 08/21/2014 Weeks Gestation: 41 Delivery type: Hours of labor: 12 Anesthesia type: epidural Delivery location: [place] Infant Sex: Male weight: 6-11 Name: Jerrod Past Medical History: ?Thyroid disease Patient states didd= not complete work up hospitalized x 2 weeks "intestestinal problem" G E R D Questionable liver disease did not complete work up "possibly cirrhosis" Past Surgical History: Negative Past Surgical History Family History Summary: Other Family Member - Has No Family History of Ovarvian Cancer - Entered On: 12/08/2020 Other Family Member - Has No Family History of Breast Cancer - Entered On: 12/08/2020 Other Family Member - Has Family History of Hypertension - Entered On: 12/08/2020 Other Family Member - Has Family History of Diabetes - Entered On: 12/08/2020 Other Family Member - Has Family History of CVA or Stroke - Entered On: 12/08/2020 Other Family Member - Has Family History of Coronary Heart Disease - Entered On: 12/08/2020 Other Family Member - Has Family History Colon Cancer - Entered On: 12/08/2020 Social History: Marital Status: Single Children: 3 Occupation: unemployed Risk Factors: Smoked Tobacco Use: Current every day smoker Cigarettes: Yes -- 1 pack(s) per day, Year started: 2009 Drug use: yes Substance: marijuana HIV high-risk behavior: low risk Alcohol use: yes Drinks per day: social Dietary Counseling: pn yes Past Medical History 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 of genital herpes: no Infection History Comments: Trich Genetic History Congenital Heart Defect: Mom: no Dad: no Rebecca Disease: Mom: no Dad: no Thalassemia Mom: no Dad: no Neural Tube Defect Mom: no Dad: no Down's Syndrome Mom: no Dad: no Miguel Angel-Sachs Mom: no Dad: no Sickle Cell Disease/Trait Mom: no Dad: no Hemophilia Mom: no Dad: no Muscular Dystrophy Mom: no Dad: no Cystic Fibrosis Mom: no Dad: no Geronimo Chorea Mom: no Dad: no Mental Retardation Mom: no Dad: no Fragile X Mom: no Dad: no Other Genetic/Chromosomal Disorder Mom: no Dad: no Child w/other defect Mom: no Dad: no Active Medications (reviewed today): None Current Allergies (reviewed today): * PCN (Critical) Laboratory Results Routine Urinalysis Leukocytes: negative Nitrite: negative Urobilinogen: negative Protein: negative Blood: negative Ketone: negative Bilirubin: negative Glucose: negative Urine HCG: positive Past History Past Medical History: other (see HPI) Past Surgical History: other (see HPI) 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 (see HPI) Family/Genetic History: other (see HPI) Social history: other (see HPI) - Obstetrical History Expected Date of Delivery: 06/19/21 Actual Gestation: 39 Week(s) 6 Day(s) : 4 Para: 3 Hx # Term Pregnancies: 3 Number of Pregnancies: 0 Spontaneous Abortions: 0 Induced : 0 Number of Living Children: 3 Medications and Allergies Allergies Allergy/AdvReac Type Severity Reaction Status Date / Time Penicillins Allergy Anaphylaxis Verified 05/14/21 18:43 Home Medications Medication Instructions Recorded Confirmed Last Taken Type Vit-Fe Fumar-FA [ 1 tab PO QDAY #90 tablet 10/17/20 03/27/21 03/26/21 Rx Vitamin] Famotidine [Pepcid] 1 tab PO DAILY 03/27/21 03/27/21 03/25/21 History Review of Systems All systems: negative Genitourinary: contractions - Vital Signs Vital signs: Vital Signs Pulse BP Pulse Ox 108 H 115/74 99 06/18/21 18:37 06/18/21 18:37 06/18/21 18:37 Temp Pulse Resp BP Pulse Ox 97.3 F L 109 H 20 115/74 98 06/18/21 18:43 06/18/21 19:12 06/18/21 18:43 06/18/21 18:37 06/18/21 19:12 - Physical Exam Breasts: Positive: deferred Cardiovascular: Regular rate Lungs: Positive: Normal air movement Abdomen: Positive: normal appearance, soft Genitourinary (Female): Positive: normal external genitalia, normal perenium Vulva: both: normal Vagina: Positive: normal moisture Uterus: Positive: normal size, normal contour Anus/Rectum: Positive: normal perianal skin Extremities: Positive: normal - Obstetrical FHR: auscultation normal, category 1 Uterine Contraction Monitor Mode: Palpation Cervical Dilatation: 4 (per Ani RN) Cervical Effacement Percentage: 80 station: -2 Uterine Contraction Frequency (min): 2-4 Uterine Contraction Pattern: Regular Uterine Tone Measurement Phase: Contraction Uterine Contraction Intensity: Moderate Results Result Diagrams: 06/18/21 19:10 All other labs normal. GBS NEGATIVE ests: (1) Comp. Metabolic Panel (14) ([id number]) Glucose 78 mg/dL 65-99 *1 BUN 6 mg/dL 6-20 *2 Creatinine [L] 0.52 mg/dL 0.57-1.00 *3 ! eGFR If NonAfricn Am 129 mL/min/1.73 >59 *4 ! eGFR If Africn Am 148 mL/min/1.73 >59 *5 BUN/Creatinine Ratio 12 9-23 *6 Sodium 135 mmol/L 134-144 *7 Potassium 4.3 mmol/L 3.5-5.2 *8 Chloride 98 mmol/L 96-106 *9 Carbon Dioxide, Total 22 mmol/L 20-29 *10 Calcium 9.5 mg/dL 8.7-10.2 *11 Protein, Total 7.1 g/dL 6.0-8.5 *12 Albumin 4.4 g/dL 3.9-5.0 *13 Globulin, Total 2.7 g/dL 1.5-4.5 *14 A/G Ratio 1.6 1.2-2.2 *15 Bilirubin, Total <0.2 mg/dL 0.0-1.2 *16 Alkaline Phosphatase 41 IU/L 39-117 *17 AST (SGOT) 15 IU/L 0-40 *18 ALT (SGPT) 12 IU/L 0-32 *19 Tests: (2) Thyroid Profile II ([id number]) TSH [L] 0.449 uIU/mL 0.450-4.500 *20 Thyroxine (T4) 10.0 ug/dL 4.5-12.0 *21 T3 Uptake [L] 20 % 24-39 *22 Free Thyroxine Index 2.0 1.2-4.9 *23 Triiodothyronine (T3) [H] 181 ng/dL 71-180 *24 Tests: (1) Profile I ([id number]) Order Note: Clinical Information: SRC:UR HBsAg Screen Negative Negative *1 RPR Non Reactive Non Reactive *2 Rubella Antibodies, IgG 2.39 index Immune >0.99 *3 Non-immune <0.90 Equivocal 0.90 - 0.99 Immune >0.99 ABO Grouping A *4 Rh Factor Positive *5 Please note: Prior records for this patient's ABO / Rh type are not available for additional verification. Antibody Screen Negative Negative *6 WBC [H] 12.0 x10E3/uL 3.4-10.8 *7 RBC 4.43 x10E6/uL 3.77-5.28 *8 Hemoglobin 12.5 g/dL 11.1-15.9 *9 Hematocrit 38.3 % 34.0-46.6 *10 MCV 87 fL 79-97 *11 MCH 28.2 pg 26.6-33.0 *12 MCHC 32.6 g/dL 31.5-35.7 *13 RDW 12.6 % 11.7-15.4 *14 Platelets 223 x10E3/uL 150-450 *15 Neutrophils 75 % Not Estab. *16 Lymphs 18 % Not Estab. *17 Monocytes 7 % Not Estab. *18 Eos 0 % Not Estab. *19 Basos 0 % Not Estab. *20 ! Immature Cells <No Reported Value> *21 Neutrophils (Absolute) [H] 8.9 x10E3/uL 1.4-7.0 *22 Lymphs (Absolute) 2.1 x10E3/uL 0.7-3.1 *23 Monocytes(Absolute) 0.9 x10E3/uL 0.1-0.9 *24 Eos (Absolute) 0.0 x10E3/uL 0.0-0.4 *25 Baso (Absolute) 0.0 x10E3/uL 0.0-0.2 *26 ! Immature Granulocytes 0 % Not Estab. *27 ! Immature Grans (Abs) 0.0 x10E3/uL 0.0-0.1 *28 ! NRBC <No Reported Value> *29 Hematology Comments: <No Reported Value> *30 Tests: (2) AFP Tetra ([id number]) ! Results Report *31 ! Test Results: *Screen Negative* *32 ! Gest. Age on Collection Date 15.0 WEEKS *33 ! Gestat. Age Based On DALLIN *34 06/19/2021 ! M[age]ALLIN [age] *35 ! Race Black *36 ! Weight 194 lbs *37 ! Insulin Dep Diabetes No *38 ! Multiple Gestation No *39 ! AFP Value 18.7 ng/mL *40 ! AFP MoM 0.69 *41 ! hCG Value 60139 mIU/mL *42 ! hCG MoM 0.68 *43 ! uE3 Value 0.45 ng/mL *44 ! uE3 MoM 0.63 *45 ! JORGE Value 184.24 pg/mL *46 ! JORGE MoM 1.19 *47 ! OSBR [place] 1 [place] [address] *48 ! DSR (Second Trimester) 1 IN 1952 *49 ! DSR (By Age) 1 IN 596 *50 ! T18 Risk Not increased *51 ! T18 (By Age) 1:2321 *52 ! Interpretation NL42 *53 Interpretation: Screen Negative This result is screen negative for OSB, Down Syndrome and Trisomy 18. The AFP MoM and patient specific risks calculated are based on the gestational age and the clinical information provided. This test can identify up to 80% of open neural tube defects. Closed neural tube defects and some open defects may not be detected by this test. The combination of maternal age, AFP, hCG, uE3, and JORGE identifies 75-80% of Down Syndrome. The combination of maternal age, AFP, hCG and uE3 identifies 60% of Trisomy 18 pregnancies. The [employer] recommends amniocentesis be offered to women age 35 and older. Recalculations are not recommended when gestational dating by LMP and ultrasound are within 10 days. ! Comments: SPR *54 Christy Perera, Ph.D., [facility] Director References: Available Upon Request. Multiples Of Median Cutoffs Abbreviation Definitions For AFP Elevations IDD- Insulin Dep Diabetes Robison 2.5 Black 2.8 OSBR- Open Spina Bifida IDD 2.0 Twins 4.5 Risk DSR Cutoff 1:270 DSR- Down Syndrome Risk T18 Cutoff 1:100 T18- Trisomy 18 Down Syndrome and Trisomy 18 screening are considered Investigational For further inquiries contact [facility] at [phone]. Tests: (3) HB Solu + Rflx Frac ([id number]) Hemoglobin (Hgb) Solubility Negative Negative *55 Tests: (4) HIV Ag/Ab with Reflex ([id number]) HIV Screen 4th Generation wRfx Non Reactive Non Reactive *56 Tests: (5) HCV Ab w/Rflx to Verification ([id number]) ! HCV Ab <0.1 s/co ratio 0.0-0.9 *57 Tests: (6) Comment: ([id number]) ! Comment: SPRCS *58 Non reactive HCV antibody screen is consistent with no HCV infection, unless recent infection is suspected or other evidence exists to indicate HCV infection. Tests: (7) Urine Culture, Routine ([id number]) Urine Culture, Routine Final report *59 Tests: (8) Result ([id number]) ! Result 1 No growth *60 Assessment and Plan pt @39.6 weeks EGA presents to triage with c/o contractions since last night. Pt discharged this am from triage with SVE unchanged 2.5/80/-2, now SVE 4/80/-2 per RN. Pt denies LOF but reports small amount of vaginal bloody mucousy discharge. FHT's Cat1 with ctx noted q2-4 mins. Pt reports desires for admission and epidural. Orders placed in EMR. POC reviewed with pt and RN to start IV, draw labs, and pt may have epidural as desired. Anticipate . - Patient Problems (1) 39 weeks gestation of Current Visit: Yes Status: Acute (2) Active labor Current Visit: Yes Status: Acute
[2021-06-18 19:26] LABS: Hematocrit 33.7 % (30.3-42.9); Hemoglobin 11.2 gm/dl (10.1-14.3); Mean Corpuscular HGB Conc 33 % (30-34); Mean Corpuscular Volume 84 fl (79-97); Platelet Count 223 K/mm3 (140-440); Red Blood Count 4.01 M/mm3 (3.65-5.03); Red Cell Distribution Width 13.9 % (13.2-15.2)
[2021-06-18] MEDS: LACTATED RINGERS 1,000 ML IV SCH ×2 (19:51→21:00)
[2021-06-18] MEDS ORDERED: OXYTOCIN DRIP 30 UNITS/500 ML BAG IV SCH (20:00)
[2021-06-18] MEDS ORDERED: NALOXONE 2 MG/2 ML INJ IV PRN (20:41)
[2021-06-18] MEDS ORDERED: diphenhydrAMINE 50 MG/ML VIAL IV PRN (20:41)
[2021-06-18] MEDS ORDERED: NalbUPHINE 10 MG/1 ML INJ IV PRN (20:41)
[2021-06-18] MEDS ORDERED: LACTATED RINGERS 250 ML IV SOLN IV ONE (20:41)
[2021-06-18] MEDS ORDERED: fentaNYL-BUPIV 2 MCG/ML-0.125% 200 MCG/100 ML BAG EPIDURAL SCH (21:00)
--- NOTE | 2021-06-18 21:03 | Progress Note ---
Labor Epidural - Labor Epidural Start Time: 20:45 Stop Time: 21:00 Performed by:: JOHNSON AGUSTIN Procedure: Patient is requesting epidural for labor and pain. H&P, labs were reviewed. Patient IDed, H&P reviewed, all questions and concerns were answered, and consent was signed. Timeout was performed at bedside. Patient in sitting position. Sterile prep and drape was performed. 3ml of 1% lidocaine skin wheal at L[3]- L [4]. 18-gauge Curasight epidural needle was advanced to loss of resistance with air technique 7cm. Negative CSF negative blood. Epidural catheter advanced to [12] centimeters. [negative] Aspiration [negative] test dose. Sterile dressing applied. Patient tolerated procedure.
--- NOTE | 2021-06-18 21:03 | Anesthesia Consultation ---
Anesthesia Consult and Med Hx Date of service: 06/18/21 - Airway Anesthetic Teeth Evaluation: Good ROM Head & Neck: Adequate Mental/Hyoid Distance: Adequate Mallampati Class: Class II Intubation Access Assessment: Probably Good - Pulmonary Exam CTA: Yes - Cardiac Exam Cardiac Exam: RRR - Pre-Operative Health Status ASA Pre-Surgery Classification: ASA2 Proposed Anesthetic Plan: Epidural - Pulmonary Hx Smoking: Yes (Occ Marijuana) Hx Asthma: No Hx Sleep Apnea: No - Cardiovascular System Hx Hypertension: No Hx Heart Attack/AMI: No Hx Angina: No - Central Nervous System Hx Seizures: No Hx Psychiatric Problems: Yes (PPD) - Gastrointestinal Hx Gastroesophageal Reflux Disease: No - Endocrine Hx Renal Disease: No Hx Liver Disease: No Hx Insulin Dependent Diabetes: No Hx Non-Insulin Dependent Diabetes: No Hx Hypothyroidism: No Hx Hyperthyroidism: Yes - Hematic Hx Anemia: No Hx Sickle Cell Disease: No - Other Systems Hx Alcohol Use: No (not during ) Hx Obesity: Yes
[2021-06-19] MEDS ORDERED: LIDOCAINE (2%) 20 MG/1 ML VIAL 20 ML MDV INFILTRATI ONE (02:35)
--- NOTE | 2021-06-19 03:44 | Procedure Note ---
OB Delivery Note - Delivery Date of Delivery: 06/19/21 Nut Tightener: HUSSAIN SZYMANSKI Estimated blood loss: other (400mL) - Vaginal Delivery presentation: vertex Delivery position: OA Intrapartum events: none Delivery induction: none Delivery monitor: external FHT, external uterine Route of delivery: Delivery placenta: spontaneous Delivery cord: 3 umbilical vessels Episiotomy: none Delivery laceration: none Anesthesia: epidural - Infant A at 1 minute: 8 at 5 minutes: 9 Gender: Female
[2021-06-19] MEDS ORDERED: WITCH HAZEL/ GLYCERIN PAD TP PRN (05:34)
[2021-06-19] MEDS ORDERED: LANOLIN/ZINC/DIMETHICONE (LANSINOH) 7 GM TP PRN (05:34)
[2021-06-19] MEDS ORDERED: oxyCODONE /ACETAMINOPHEN 5-325MG TAB PO PRN (05:34)
[2021-06-19] MEDS ORDERED: BENZOCAINE/MENTHOL 20/0.5% TOP SPRAY 56 GM TP PRN (05:34)
[2021-06-19] MEDS ORDERED: diphenhydrAMINE 25 MG CAP PO PRN (05:34)
[2021-06-19] MEDS ORDERED: PROMETHAZINE 25 MG TAB PO PRN (05:34)
[2021-06-19] MEDS ORDERED: MAGNESIUM HYDROXIDE (MOM) ORAL LIQD UDC PO PRN (05:34)
[2021-06-19] MEDS ORDERED: ONDANSETRON 4 MG/2 ML INJ IV PRN (05:34)
[2021-06-19] MEDS: IBUPROFEN 600 MG TAB PO SCH ×2 (06:01→12:32)
--- NOTE | 2021-06-19 09:03 | Post Anesthesia Evaluation ---
- Post Anesthesia Evaluation Patient Participated: Yes Airway Patent: Yes Stable Respiratory Function: Yes Nausea/Vomiting: No Temp > 96.8F: Yes Pain Manageable: Yes Adequeate Hydration: Yes Anesthesia Complications: No Block Receding Appropriately: Yes Patient on Ventilator: No
[2021-06-19] MEDS: PRENATAL VIT27-FE FUMARATE-FOLIC ACID VIT TAB PO SCH (09:57)
[2021-06-19] MEDS: DOCUSATE SODIUM 100 MG CAP PO SCH ×2 (09:57→21:56)
[2021-06-19 15:38] LABS: Hematocrit 31.8 % (30.3-42.9); Hemoglobin 10.3 gm/dl (10.1-14.3)
[2021-06-19] MEDS ORDERED: IBUPROFEN 600 MG TAB PO SCH (16:50)
[2021-06-19] MEDS ORDERED: ACETAMINOPHEN 500 MG TAB PO NR (16:50)
--- NOTE | 2021-06-19 16:57 | Progress Note ---
Assessment and Plan A: 31 y.o. s/p . Some cramping not relieved by Motrin 600mg. P: Continue with care. Motrin changed to 800mg q 6 hrs scheduled. Tylenol 1000mg q 6 hrs prn added. Anticipate discharge home on 06/20. Subjective - Subjective Date of service: 06/19/21 (Pt with some cramping) Principal diagnosis: s/p @ term Patient reports: appetite normal, voiding normally, flatus, ambulating normally, other (Having some cramping. ) [place]: doing well Objective - Vital Signs Latest vital signs: Vital Signs Temp Pulse Resp BP BP Pulse Ox 06/19/21 16:05 98.2 F 97 H 20 123/57 98 06/19/21 11:47 97.8 F 88 20 115/76 98 06/19/21 07:42 97.9 F 88 16 104/60 99 06/19/21 05:10 98.3 F 90 18 123/60 98 06/19/21 04:38 107 H 99 06/19/21 04:33 110 H 97 06/19/21 04:28 104 H 97 06/19/21 04:23 108 H 97 06/19/21 04:18 110 H 97 06/19/21 04:13 106 H 98 06/19/21 04:08 109 H 110/64 98 06/19/21 04:03 110 H 99 06/19/21 04:02 109 H 94 06/19/21 03:58 115 H 98 06/19/21 03:53 118 H 98 06/19/21 03:49 117 H 92 06/19/21 03:48 110 H 100 06/19/21 03:46 97.9 F 06/19/21 03:43 113 H 100 06/19/21 03:38 115 H 100 06/19/21 03:33 113 H 100 06/19/21 03:28 109 H 100 06/19/21 03:23 114 H 100 06/19/21 03:18 124 H 100 06/19/21 03:13 102 H 100 06/19/21 03:08 99 H 133/63 100 06/19/21 03:03 109 H 100 06/19/21 02:58 98.9 F 108 H 100 06/19/21 02:53 100 H 99 06/19/21 02:48 102 H 99 06/19/21 02:43 100 H 100 06/19/21 02:38 99 H 100 06/19/21 02:33 111 H 100 06/19/21 02:28 111 H 100 06/19/21 02:23 120 H 100 06/19/21 02:18 106 H 100 06/19/21 02:13 103 H 100 06/19/21 02:08 107 H 97 06/19/21 02:07 116 H 113/82 06/19/21 02:03 107 H 97 06/19/21 01:58 105 H 98 06/19/21 01:53 100 H 98 06/19/21 01:52 100 H 121/70 06/19/21 01:48 95 H 100 06/19/21 01:43 102 H 99 06/19/21 01:38 102 H 116/65 98 06/19/21 01:33 102 H 100 06/19/21 01:28 103 H 100 06/19/21 01:23 94 H 99 06/19/21 01:22 100 H 120/62 06/19/21 01:18 100 H 100 06/19/21 01:13 101 H 98 06/19/21 01:09 109 H 131/67 06/19/21 01:08 100 H 100 06/19/21 01:03 102 H 100 06/19/21 01:00 103 H 83 L 06/19/21 00:58 93 H 100 06/19/21 00:53 98 H 100 06/19/21 00:52 96 H 109/60 06/19/21 00:48 105 H 100 06/19/21 00:43 96 H 99 06/19/21 00:38 103 H 100 06/19/21 00:37 94 H 125/59 06/19/21 00:33 92 H 100 06/19/21 00:29 98 H 91 06/19/21 00:28 95 H 100 06/19/21 00:23 100 H 117/69 100 06/19/21 00:22 85 06/19/21 00:18 95 H 99 06/19/21 00:17 116 H 94 06/19/21 00:13 98 H 98 06/19/21 00:08 102 H 97 06/19/21 00:07 103 H 115/66 06/19/21 00:03 90 99 06/18/21 23:58 92 H 97 06/18/21 23:53 91 H 115/66 99 06/18/21 23:48 91 H 98 06/18/21 23:43 94 H 98 06/18/21 23:41 93 H 90 06/18/21 23:38 89 100 06/18/21 23:37 92 H 111/63 06/18/21 23:33 95 H 100 06/18/21 23:28 100 H 100 06/18/21 23:23 96 H 98 06/18/21 23:22 95 H 121/66 06/18/21 23:18 102 H 100 06/18/21 23:13 100 H 100 06/18/21 23:12 102 H 91 06/18/21 23:08 99 H 120/59 99 06/18/21 23:07 94 H 93 06/18/21 23:05 97.9 F 06/18/21 23:03 100 H 100 06/18/21 22:59 98 H 86 06/18/21 22:58 106 H 100 06/18/21 22:53 93 H 117/63 100 06/18/21 22:49 99 H 94 06/18/21 22:48 97 H 96 06/18/21 22:43 91 H 95 06/18/21 22:38 91 H 96 06/18/21 22:37 93 H 102/59 06/18/21 22:33 97 H 95 06/18/21 22:28 92 H 95 06/18/21 22:24 92 H 94 06/18/21 22:23 93 H 95 06/18/21 22:22 90 101/56 06/18/21 22:19 93 H 94 06/18/21 22:18 93 H 95 06/18/21 22:13 95 H 95 06/18/21 22:11 90 94 18 22:08 89 97 06/18/21 22:06 92 H 94 06/18/21 22:04 91 H 100/58 06/18/21 22:03 93 H 94 06/18/21 22:01 92 H 105/59 06/18/21 22:00 92 H 94 06/18/21 21:58 96 H 97/54 95 07/18/21 21:55 89 101/57 07/18/21 21:53 92 H 94 07/18/21 21:52 93 H 106/57 07/18/21 21:49 92 H 103/55 0718/21 21:48 100 H 95 0718/21 21:46 93 H 106/59 94 18/21 21:43 95 H 105/65 97 0718/21 21:40 94 H 107/58 0718/21 21:38 90 99 0718/21 21:37 94 H 107/62 0718/21 21:34 97 H 100/63 0718/21 21:33 92 H 97 18/21 21:31 94 H 108/58 0718/21 21:28 97 H 100/59 99 18/21 21:25 93 H 107/64 18/21 21:23 95 H 98 18/21 21:22 99 H 103/66 18/21 21:19 93 H 108/72 18/21 21:18 92 H 99 18/21 21:16 93 H 100/57 18/21 21:13 90 110/59 99 18/21 21:10 92 H 117/59 18/21 21:08 93 H 99 18/21 21:07 97 H 121/65 18/21 21:04 97 H 118/61 18/21 21:03 98 H 100 1821 21:01 96 H 127/64 18/21 20:59 110 H 93 18/21 20:58 103 H 140/76 99 18/21 20:55 98 H 137/75 18/21 20:53 96 H 98 18/21 20:48 101 H 99 18/21 20:43 99 H 99 18/21 19:57 98.2 F 20 18/21 19:29 113 H 125/77 18/21 19:17 99 H 100 18/21 19:12 109 H 98 18/21 19:07 111 H 98 18/21 19:05 107 H 93 1821 19:02 104 H 99 21 18:57 105 H 99 1821 18:56 83 L 06/18/21 18:52 102 H 99 06/18/21 18:47 109 H 99 06/18/21 18:43 97.3 F L 20 06/18/21 18:42 111 H 99 06/18/21 18:37 108 H 115/74 99 Intake and Output 06/19/21 06/19/21 06/19/21 06:59 14:59 22:59 Intake Total 880 Output Total 1200 300 Balance -1200 580 Intake: Oral 780 Intake, Free Water 100 Output: Urine 1200 300 Indwelling Catheter 800 Void 400 300 Other: Total, Intake Amount 240 Total, Output Amount 400 300 # Voids Void 1 Estimated Blood Loss 426 - Exam Narrative Exam: Pt states that she is doing well. States that she is having some periods of intense cramping that the 600mg of Motrin that really is not helping. Changed Motrin to 800mg and also added 1000mg of Tylenol. RN and patient aware of medication changes. Will continue to monitor pain level before discharge. Pt would like BC: Salpingectomy. She would also like Depo before discharge home. Depo ordered. Breasts: Present: deferred Cardiovascular: Present: Regular rate Lungs: Present: Normal air movement Abdomen: Present: normal appearance, soft Vulva: both: normal Uterus: Present: normal, firm, other (Normal bleeding for post delivery) Extremities: Present: normal - Labs Labs: Abnormal lab results 06/18/21 Range/Units 19:10 WBC 16.5 H (4.5-11.0) K/mm3
[2021-06-19] MEDS ORDERED: medroxyPROGESTERone ACETATE 150 MG/ML SYRINGE IM NR (17:00)
[2021-06-19] MEDS: IBUPROFEN 800 MG TAB PO SCH (17:20)
[2021-06-19] MEDS ORDERED: AYR SALINE NASAL GEL 14.1 GM NS PRN (18:00)
[2021-06-19] MEDS ORDERED: guaiFENesin DM 200/20 MG ORAL LIQD 10 ML PO PRN (18:00)
[2021-06-20] MEDS ORDERED: ACETAMINOPHEN 500 MG TAB PO PRN (00:08)
[2021-06-20] MEDS ORDERED: medroxyPROGESTERone ACETATE 150 MG/ML SYRINGE IM ONE ×2 (00:10→06:00)
[2021-06-20] MEDS: IBUPROFEN 800 MG TAB PO SCH ×3 (00:27→11:31)
[2021-06-20] MEDS ORDERED: TETANUS,DIPH,PERTUSS(ACELL) VACCINE 0.5 ML SYRINGE IM ONE (06:00)
--- NOTE | 2021-06-20 08:43 | Discharge Summary ---
Providers - Providers Date of Admission: 06/18/21 19:08 Date of discharge: 06/20/21 (desires d/c home) Attending physician: JACKELIN HUERTA Primary care physician: JACKELIN HUERTA Hospitalization Reason for admission: Labor Condition: Good Pertinent studies: post delivery H&H 10.3/31.8 Procedures: Hospital course: uncomplicated and course Disposition: DC-01 TO HOME OR SELFCARE Final Discharge Diagnosis (Prints w/discharge instructions): Time spent for discharge: 15 - Discharge Diagnoses (1) (normal spontaneous vaginal delivery) Status: Acute Core Measure Documentation - Palliative Care Palliative Care/ Comfort Measures: Not Applicable - Core Measures Any of the following diagnoses?: none Exam - Constitutional Vitals: Temp Pulse Resp BP Pulse Ox 97.5 F L 67 24 109/72 100 06/20/21 07:37 06/20/21 07:37 06/20/21 07:37 06/20/21 07:37 06/20/21 07:37 General appearance: Present: no acute distress, well-nourished - EENT Eyes: Present: PERRL ENT: hearing intact, clear oral mucosa - Neck Neck: Present: supple, normal ROM - Respiratory Respiratory effort: normal Respiratory: bilateral: CTA - Cardiovascular Heart Sounds: Absent: rub, click - Extremities Extremities: No edema - Abdominal General gastrointestinal: Present: soft, non-tender, non-distended, normal bowel sounds - Integumentary Integumentary: Present: clear, warm, dry - Musculoskeletal Musculoskeletal: gait normal, strength equal bilaterally - Psychiatric Psychiatric: appropriate mood/affect, intact judgment & insight - Neurologic Neurologic: CNII-XII intact, moves all extremities - Additional findings Additional findings: lochia scant, fundus firm, VSSAF, Plan Activity: no restrictions Diet: regular Follow up with: JACKELIN HUERTA MD [Primary Care Provider] - 07/25/21 (Congratulations!! Please call [phone] to schedule your visit in 4 weeks. Call for any questions or concerns. ) Prescriptions: Docusate Sodium [Colace] 100 mg PO BID PRN #60 capsule PRN Reason: Constipation Ibuprofen [Motrin] 800 mg PO Q8HR PRN #30 tablet PRN Reason: Pain, Moderate (4-6)
[2021-06-20] MEDS: DOCUSATE SODIUM 100 MG CAP PO SCH (09:22)
[2021-06-20] MEDS: PRENATAL VIT27-FE FUMARATE-FOLIC ACID VIT TAB PO SCH (09:22)
[2021-06-20 12:36] VITALS: BP 125/80
== END 2021-06-20 13:15 | disposition home or self-care (01) | DRG 775 ==
LOC: TRG 18:33 → APU 18:36 → TRG 19:08 → LD 19:08 → OBSVTOIN 19:08 → OB 06-19 05:03
PROVIDERS: ADMIT Obstetrics & Gynecology; ATTEND Obstetrics & Gynecology
PROC: 10E0XZZ Delivery of Products of Conception, External Approach (ICD-10-PCS; principal; 2021-06-19)
PROC: 3E0R3BZ Introduction of Anesthetic Agent into Spinal Canal, Percutaneous Approach (ICD-10-PCS; 2021-06-19)
PROC: 00HU33Z Insertion of Infusion Device into Spinal Canal, Percutaneous Approach (ICD-10-PCS; 2021-06-19)
PROC: 3E0234Z Introduction of Serum, Toxoid and Vaccine into Muscle, Percutaneous Approach (ICD-10-PCS; 2021-06-20)
DX: O99.334 Smoking (tobacco) complicating childbirth (principal); Z37.0 Single live birth; Z20.822 Contact with and (suspected) exposure to COVID-19; F17.210 Nicotine dependence, cigarettes, uncomplicated; O99.284 Endocrine, nutritional and metabolic diseases complicating childbirth; E05.90 Thyrotoxicosis, unspecified without thyrotoxic crisis or storm; Z23 Encounter for immunization; Z3A.39 39 weeks gestation of pregnancy; Z88.0 Allergy status to penicillin
CPT/HCPCS: 36415; 59025; 85014; 85018; 85027; 86592; 86850; 86900; 86901; 99406; G0378; J0595; J1050; J7120; U0003

== ENCOUNTER 2021-11-03 19:44 | Emergency (ER) | payer OTHER, MEDICAID ==
[2021-11-03 20:49] VITALS: BP 130/77
[2021-11-03] MEDS ORDERED: ACETAMINOPHEN 500 MG TAB PO ONE (22:58)
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
== END 2021-11-04 01:26 | disposition home or self-care (01) ==
LOC: ED 19:44
DX: S53.401A Unspecified sprain of right elbow, initial encounter (principal); S20.212D Contusion of left front wall of thorax, subsequent encounter; V89.2XXA Person injured in unspecified motor-vehicle accident, traffic, initial encounter; Y93.89 Activity, other specified; Y92.89 Other specified places as the place of occurrence of the external cause; Y99.8 Other external cause status
CPT/HCPCS: 99283